=== PATIENT | female | born 1995 | race Caucasian/White ===

== ENCOUNTER 2024-03-06 06:47 | Day surgery (SDC) | payer OTHER ==
[2024-03-05 16:49] LABS: HEMOGLOBIN 12.6 g/dL (12.0-15.00); MEAN CELL VOLUME 87.5 fL (80.00-100.00); MEAN CORPUSCULAR HEMOGLOBIN 29.9 pg (27.00-32.0); MEAN CORPUSCULAR HGB CONC 34.2 g/dl (32.0-36.0); PLATELET COUNT 221 K/uL (150-450); RED BLOOD COUNT 4.23 M/uL (4.00-6.00); RED CELL DISTRIBUTION WIDTH 13.7 % (11.5-14.5)
[2024-03-05 17:08] LABS: INR 0.96; PARTIAL THROMBOPLASTIN TIME 26.4 SECONDS (22.0-34.0); PROTHROMBIN TIME 10.5 SECONDS (9.0-11.5)
[2024-03-05 17:14] LABS: ALBUMIN 3.1 gm/dL (3.4-5.0); BILIRUBIN TOTAL 0.24 mg/dL (0.3-1.2); CALCIUM 9.4 mg/dL (8.5-10.1); CREATININE SERUM 0.54 mg/dL (0.55-1.02); GFR 134.43; GLOBULINA 3.9 G/DL (2.4-3.5); POTASSIUM 4.15 mEq/L (3.5-5.1)
[2024-03-06] MEDS ORDERED: POVIDONE-IODINE 118 ML BOTT TOP ONE ×2 (12:52→13:00)
[2024-03-06] MEDS ORDERED: MORPHINE SULFATE 4 MG/ML VIAL IV PRN (13:30)
[2024-03-06] MEDS ORDERED: PROMETHAZINE HCL 50 MG/ML AMPUL IM ONE (13:30)
== END 2024-03-06 18:00 | disposition home or self-care (01) ==
LOC: CIR.AMB 06:47
PROVIDERS: ATTEND Obstetrics & Gynecology Maternal & Fetal Medicine
DX: O34.31 Maternal care for cervical incompetence, first trimester (principal); Z3A.14 14 weeks gestation of pregnancy

== ENCOUNTER 2024-05-15 16:56 | Inpatient (IN) | payer OTHER ==
[~2024-05-15] VITALS: Ht 165.1 cm; Wt 94.8 kg
[2024-05-15 17:55] VITALS: BP 118/72
[2024-05-15 17:56] LABS: HEMATOCRIT 36.9 % (36.0-45.00); HEMOGLOBIN 12.5 g/dL (12.0-15.00); MEAN CORPUSCULAR HEMOGLOBIN 29.8 pg (27.00-32.0); MEAN CORPUSCULAR HGB CONC 33.9 g/dl (32.0-36.0); PLATELET COUNT 229 K/uL (150-450); RED CELL DISTRIBUTION WIDTH 13.9 % (11.5-14.5)
[2024-05-15 18:14] VITALS: BP 118/72
[2024-05-15 18:19] LABS: INR 0.97; PARTIAL THROMBOPLASTIN TIME 28.2 SECONDS (22.0-34.0); PROTHROMBIN TIME 10.6 SECONDS (9.0-11.5)
[2024-05-15 18:23] LABS: BILIRUBIN TOTAL 0.22 mg/dL (0.3-1.2); CALCIUM 9.6 mg/dL (8.5-10.1); CREATININE SERUM 0.51 mg/dL (0.55-1.02); GFR 143.59; GLOBULINA 4.3 G/DL (2.4-3.5); TOTAL PROTEIN 7.3 gm/dL (6.4-8.2)
[2024-05-15] MEDS ORDERED: NIFEDIPINE 30 MG TAB.SA.OSM PO SCH (21:00)
[2024-05-16] VITALS: BP 98/55
[2024-05-16 07:46] VITALS: BP 113/73
[2024-05-16] MEDS ORDERED: PNV,CALCIUM 72/IRON/FOLIC ACID 1 TAB TABLET PO SCH (09:00)
[2024-05-16] MEDS ORDERED: BETAMETHASONE ACETATE,SOD PHOS 30 MG/5 ML ML IM SCH (09:00)
[2024-05-16 17:09] VITALS: BP 113/67
[2024-05-16 23:53] VITALS: BP 103/61
[2024-05-17 08:00] VITALS: BP 118/74
[2024-05-17] MEDS ORDERED: ENOXAPARIN SODIUM 40 MG/0.4 ML SYRINGE SUBCUTANEO SCH (09:00)
[2024-05-17] MEDS ORDERED: BETAMETHASONE ACETATE,SOD PHOS 30 MG/5 ML ML ONE (10:34)
[2024-05-17 17:34] VITALS: BP 111/67
[2024-05-17 23:40] VITALS: BP 115/68
[2024-05-18 08:00] VITALS: BP 120/76
[2024-05-18 16:36] VITALS: BP 121/74
[2024-05-19 02:12] VITALS: BP 107/65
[2024-05-19 09:00] VITALS: BP 124/78
[2024-05-19 17:00] VITALS: BP 127/73
[2024-05-19 23:42] VITALS: BP 115/73
[2024-05-20 08:33] VITALS: BP 115/67
[2024-05-20 15:00] VITALS: BP 100/60
[2024-05-21 01:03] VITALS: BP 107/61
[2024-05-21 08:00] VITALS: BP 114/66
[2024-05-21 16:23] VITALS: BP 109/68
[2024-05-22 00:47] VITALS: BP 101/58
[2024-05-22 08:00] VITALS: BP 115/70
[2024-05-22 16:39] VITALS: BP 115/70
[2024-05-23 00:14] VITALS: BP 102/56
[2024-05-23 07:00] VITALS: BP 105/65
[2024-05-23 15:00] VITALS: BP 122/70
[2024-05-24 02:57] VITALS: BP 134/63
[2024-05-24] MEDS ORDERED: Procardia Xl 30MG TA PO (07:54)
[2024-05-24 08:18] VITALS: BP 125/70
== END 2024-05-24 12:41 | disposition home or self-care (01) | DRG 833 ==
LOC: OB/GYN 16:56
PROVIDERS: ADMIT Obstetrics & Gynecology Maternal & Fetal Medicine; ATTEND Obstetrics & Gynecology Maternal & Fetal Medicine
PROC: 4A1HXCZ Monitoring of Products of Conception, Cardiac Rate, External Approach (ICD-10-PCS; principal; 2024-05-15)
PROC: BY4CZZZ Ultrasonography of Second Trimester, Single Fetus (ICD-10-PCS; 2024-05-17)
PROC: BU4CZZZ Ultrasonography of Uterus and Ovaries (ICD-10-PCS; 2024-05-17)
PROC: BY47ZZZ Ultrasonography of Fetal Umbilical Cord (ICD-10-PCS; 2024-05-17)
PROC: BU4CZZZ Ultrasonography of Uterus and Ovaries (ICD-10-PCS; 2024-05-23)
DX: O34.32 Maternal care for cervical incompetence, second trimester (principal); O26.842 Uterine size-date discrepancy, second trimester; O36.8120 Decreased fetal movements, second trimester, not applicable or unspecified; O26.872 Cervical shortening, second trimester; Z3A.25 25 weeks gestation of pregnancy

== ENCOUNTER 2024-06-13 08:25 | Outpatient (CLI) | payer OTHER ==
[~2024-06-13 08:25] MED LIST: Procardia Xl 30MG TA PO
== END 2024-06-13 09:39 | disposition home or self-care (01) ==
LOC: NST 08:25
PROVIDERS: ATTEND Obstetrics & Gynecology Maternal & Fetal Medicine
DX: Z34.83 Encounter for supervision of other normal pregnancy, third trimester (principal)

== ENCOUNTER 2024-08-27 09:52 | Outpatient (CLI) | payer OTHER | END 2024-08-27 10:58 | disposition home or self-care (01) | LOC: NST 09:52 | PROVIDERS: ATTEND Obstetrics & Gynecology | DX: Z34.83 Encounter for supervision of other normal pregnancy, third trimester (principal) ==

== ENCOUNTER 2024-08-29 14:00 | Inpatient (IN) | payer OTHER ==
[~2024-08-29] VITALS: Ht 165.1 cm; Wt 104.8 kg
[2024-09-02 02:37] VITALS: BP 151/86
[2024-09-02] MEDS ORDERED: RINGERS SOLUTION,LACTATED 1,000 ML IV SCH (03:00)
[2024-09-02] MEDS ORDERED: MORPHINE SULFATE 4 MG/ML CARTRIDGE IV PRN (03:00)
[2024-09-02] MEDS ORDERED: PRENATAL TABLE1 EAC1 PO (03:03)
[2024-09-02 03:47] LABS: BASO % 0.2 % (0.1-1.2); EOS # 0.09 (0.04-0.54); EOS % 0.9 % (0.7-7.0); LYMPH # 1.90 (1.18-3.74); LYMPH % 18.3 % (19.3-53.1); MEAN PLATELET VOLUME 11.10 fl (9.4-12.4); MONO # 0.80 (0.24-0.82); MONO % 7.7 % (4.7-12.5); NEUT # 7.53 (1.56-6.13); NEUT % 72.5 % (34.0-71.1); RED CELL DISTRIBUTION WIDTH 13.7 % (11.6-14.4)
[2024-09-02 03:58] LABS: INR < 0.93
[2024-09-02 04:05] LABS: ALT/SGPT 13.0 U/L (12-78); AST/SGOT 13.0 U/L (15-37); BILIRUBIN TOTAL 0.21 mg/dL (0.3-1.2); BUN CREA RATIO 23.0 (7.0-25.0); CREATININE SERUM 0.64 mg/dL (0.55-1.02); GFR 110.49; GLOBULINA 3.8 G/DL (2.4-3.5); GLUCOSE FASTING 82.0 mg/dL (65-100); OSMOLALITY SERUM 277.0 MOSM/KG (275-295)
[2024-09-02] MEDS ORDERED: CHLORHEXIDINE GLUCONATE 120 ML BOTTLE TOP ONE (05:45)
[2024-09-02] MEDS ORDERED: OXYTOCIN 1,000 ML IV SCH (05:45)
[2024-09-02] MEDS ORDERED: ERYTHROMYCIN BASE OPHT 1GM EACH TUBE OP ONE (05:45)
[2024-09-02] MEDS ORDERED: LIDOCAINE HCL 1% 10ML VIAL IJ ONE (05:45)
[2024-09-02] MEDS ORDERED: OXYTOCIN 20 UNITS/1000ML RL PIGGYBAG IV ONE (05:45)
[2024-09-02] MEDS ORDERED: ACETAMINOPHEN WITH CODEINE 1 UDTAB TABLET PO PRN (05:45)
[2024-09-02 07:11] VITALS: BP 145/79
[2024-09-02 07:57] VITALS: BP 135/75
[2024-09-02 15:37] VITALS: BP 135/83
[2024-09-02 19:00] VITALS: BP 112/76
[2024-09-03 01:17] VITALS: BP 154/87
[2024-09-03 04:55] VITALS: BP 147/82
[2024-09-03 06:00] VITALS: BP 158/94
[2024-09-03 08:29] VITALS: BP 140/85
[2024-09-03] MEDS ORDERED: LABETALOL HCL 100 MG TABLET PO SCH (09:00)
[2024-09-03 13:31] VITALS: BP 139/87
[2024-09-03 16:18] VITALS: BP 139/75
[2024-09-04] VITALS: BP 143/82
[2024-09-04 08:01] VITALS: BP 150/70
== END 2024-09-04 13:00 | disposition home or self-care (01) | DRG 807 ==
LOC: OB/GYN 08-31 14:00 → LDR 09-02 02:55 → OB/GYN 09-02 02:55
PROVIDERS: Obstetrics & Gynecology; ADMIT Obstetrics & Gynecology; ATTEND Obstetrics & Gynecology
PROC: 10E0XZZ Delivery of Products of Conception, External Approach (ICD-10-PCS; principal; 2024-09-02)
PROC: 0KQM0ZZ Repair Perineum Muscle, Open Approach (ICD-10-PCS; 2024-09-02)
PROC: 4A1HXCZ Monitoring of Products of Conception, Cardiac Rate, External Approach (ICD-10-PCS; 2024-09-02)
DX: O70.1 Second degree perineal laceration during delivery (principal); Z37.0 Single live birth; Z3A.40 40 weeks gestation of pregnancy